=== PATIENT | male | born 1985 | race Hispanic/Latino ===

== ENCOUNTER 2018-11-07 08:05 | Outpatient (CLI) | payer OTHER ==
--- NOTE | 2018-11-07 11:17 | MRI ---
MRI OF LEFT ELBOW PERFORMED WITHOUT CONTRAST ENHANCEMENT: History: Injured elbow at work with elbow pain. Patient was unable to hold still for the exam and the re is considerable motion artifact. FINDINGS: Ulnar collateral ligament and lateral collateral ligamentous complex appear intact. Common flexor and extensor tendons are normal. No marrow edema changes are seen of the radius ulna or distal humerus. The triceps tendon is normal in appearance. There is a complete tear of the biceps tendon. The tendon is retracted by approximately 9 cm with the distal tendon coiled at the musculotendinous junction. There are edema changes involving the musculo tendinous junction. The tendon is coiled but the edges do not show a significant degree of fraying. I t appears to be a fairly functional appearing tendon. This degree of retraction would be consistent w ith rupture of the lacertus fibrosis. Motion artifact degrades detailed evaluation. IMPRESSION: Complete biceps tendon tear. The tendon is retracted approximately 9 cm, coiled at the level of the m usculotendinous junction of the biceps. POS: [facility]
== END 2018-11-07 08:06 | disposition home or self-care (01) ==
LOC: SCSMRI 08:05
PROVIDERS: ATTEND Orthopaedic Surgery
DX: S46.212A Strain of muscle, fascia and tendon of other parts of biceps, left arm, initial encounter (principal)

== ENCOUNTER 2018-11-13 00:33 | Outpatient (CLI) | payer OTHER ==
[2018-11-13 16:08] LABS: Hemoglobin 15.3 g/dL (14.0-18.0); Mean Corpuscular HGB CONC 33.5 g/dL (32.0-36.0); Mean Corpuscular Hemoglobin 26.7 pg (27.0-31.0); Mean Corpuscular Volume 79.8 fL (78.0-98.0); Mean Platelet Volume 7.5 fL (7.4-10.4); Platelet Count 272 thou/uL (130-400); RBC Distribution Width 11.7 % (11.5-14.5); Red Blood Cell (RBC) Count 5.73 mill/uL (4.70-6.10); White Blood Cell (WBC) Count 7.9 thou/uL (4.8-10.8)
== END 2018-11-13 00:34 | disposition home or self-care (01) ==
LOC: LABBT 00:33
PROVIDERS: ATTEND Orthopaedic Surgery
DX: Z01.812 Encounter for preprocedural laboratory examination (principal); S46.212A Strain of muscle, fascia and tendon of other parts of biceps, left arm, initial encounter
CPT/HCPCS: 85027

== ENCOUNTER 2018-11-14 06:58 | Day surgery (SDC) | payer OTHER ==
[2018-11-13 15:03] VITALS: BMI 28.0
[2018-11-14] MEDS ORDERED: Midazolam HCl 2 mg/2 ml Vial ONE (08:07)
[2018-11-14] MEDS ORDERED: Fentanyl 100 MCG/2 ML VIAL ONE (08:07)
[2018-11-14] MEDS ORDERED: Ondansetron PF 4 MG/2 ML Vial IVP PRN (09:26)
[2018-11-14] MEDS ORDERED: HYDROcodone/Acetaminophen 5/325 mg Tablet PO PRN ×2 (09:26)
[2018-11-14] MEDS ORDERED: Promethazine HCl 25 MG/ML VIAL IM PRN (09:26)
[2018-11-14] MEDS ORDERED: Ropivacaine 0.2% 550 ML 550 ML NERVE BLCK SCH (09:26)
[2018-11-14] MEDS ORDERED: traMADol HCl 50 MG TAB PO PRN ×2 (09:26)
[2018-11-14] MEDS ORDERED: Zolpidem Tartrate 5 MG TAB PO PRN (09:26)
[2018-11-14] MEDS ORDERED: Fentanyl 100 MCG/2 ML VIAL IV PRN (09:27)
[2018-11-14] MEDS ORDERED: Dexamethasone 20 MG/5 ML VIAL ONE (10:00)
[2018-11-14] MEDS ORDERED: PROPOFOL 200 MG/20 ML VIAL ONE (10:00)
[2018-11-14] MEDS ORDERED: Rocuronium Bromide 10 MG/ML (10ML VIAL) ONE (10:00)
[2018-11-14] MEDS ORDERED: Ondansetron PF 4 MG/2 ML Vial ONE (10:00)
[2018-11-14] MEDS ORDERED: Glycopyrrolate 0.2 MG/ML 5 ML SYRINGE ONE (10:00)
[2018-11-14] MEDS ORDERED: Ketorolac Tromethamine 30 MG/ML VIAL ONE (10:00)
[2018-11-14] MEDS ORDERED: Lidocaine 1% PF 5 ML VIAL ONE (10:00)
[2018-11-14] MEDS ORDERED: Ropivacaine 0.2% HCl/PF (40 MG/20 ML VIAL) ONE (11:13)
[2018-11-14] MEDS ORDERED: Ropivacaine 0.5% HCl/PF (150 MG/30 ML VIAL) ONE (11:13)
--- NOTE | 2018-11-14 11:17 | RAD ---
TWO VIEWS LEFT ELBOW: HISTORY: Biceps tendon repair. FINDINGS: Single oblique view left elbow obtained. There has been placement of a radiopaque marker over the proximal radius. This is compatible with po stsurgical changes of biceps repair. A small amount of gas is seen in the left elbow joint. IMPRESSION: Status post left elbow reconstruction and biceps repair. POS: [facility]
--- NOTE | 2018-11-15 03:40 | OP ---
DATE OF PROCEDURE: 11/14/2018 PREOPERATIVE DIAGNOSIS: Left distal biceps rupture. POSTOPERATIVE DIAGNOSIS: Left distal biceps rupture. PROCEDURE PERFORMED: Left distal biceps tendon repair. CLOUD SYSTEMS ADMINISTRATOR: Bud Glaser PA-C. ANESTHESIA: The patient received general endotracheal intubation with interscalene. ESTIMATED BLOOD LOSS: 30 mL. TOURNIQUET TIME: 46 minutes at 250 mmHg. ANTIBIOTICS: Ancef 2 g. IMPLANTS: Arthrex distal biceps repair TightRope with suture. COMPLICATIONS: None. HISTORY OF PRESENT ILLNESS: Mr. 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 The patient had immediate pain and rupture of his distal biceps. I discussed with the patient, the risks and benefits of a left distal biceps repair to include pain, scar, bleeding, infection, damage to vital structures, decreased range of motion and strength, nonunion, malunion, need for further surgery. The patient understood the risks and benefits and elected to proceed. DESCRIPTION OF PROCEDURE: Time-out was performed designating the patient's left upper extremity as the operative site based on site, consents, and markings. After time-out, the patient's tourniquet was brought up for a total of 46 minutes, made an incision between the pronator and the brachioradialis, came down and found the patient's stump proximally, came to the biceps sheath and aponeurosis. To kind of expand the space to track down, we bluntly dissected down through the aponeurosis for its insertion, a little bit distally going under the leash, keeping the leash of Radu intact. The lateral brachial cutaneous nerve was retracted laterally and it was not seen in our surgical field. We came down onto the bicipital tuberosity, exposed, and removed right up to the stump for position of our drill bit; we looked under fluoroscopic guidance and surely liked the position. We drilled bicortically, and then drilled a 7.5 hole for tendon. A FiberLoop was passed through the patient's biceps moving proximally to distally. We cut the tendon to pass through the 7.5 hole. We then passed it through our TightRope, and passed it underneath the leash in line with its position. We then passed it in and pulled the tendon into the hole. We then passed the suture ends back underneath the leash and passed the sutures through the tendon and sewed through the tendon to keep it in place. The patient was tied at about 20 degrees of extension, had a nice repair. We had washed and removed all the bone debris before and after the procedure and washed again. We then closed subcu with 2-0 and 3-0 nylon. The patient will follow us in about 10 to 14 days to begin range of motion. Job ID: [id number] [facility]
== END 2018-11-14 14:00 | disposition home or self-care (01) ==
LOC: SDC 06:58
PROVIDERS: ATTEND Orthopaedic Surgery
PROC: 0LQ40ZZ Repair Left Upper Arm Tendon, Open Approach (ICD-10-PCS; principal; 2018-11-14)
DX: S46.212A Strain of muscle, fascia and tendon of other parts of biceps, left arm, initial encounter (principal); X50.0XXA Overexertion from strenuous movement or load, initial encounter
CPT/HCPCS: 76000; A4306; C1713; J1100; J1885; J2001; J2250; J2405; J2704; J2795; J3010

== ENCOUNTER 2021-04-19 05:28 | Emergency (ER) | payer SELFPAY ==
[2021-04-19 06:11] LABS: #Basophils 0.1 thou/uL (0.0-0.2); #Eosinphils 0.1 thou/uL (0.0-0.7); #Lymphocytes 3.3 thou/uL (1.20-3.40); #Monocytes 0.8 thou/uL (0.11-0.59); #Neutrophils 7.6 thou/uL (1.40-6.50); %Basophils 0.8 % (0.0-1.0); %Eosinophils 0.9 % (0.0-10.0); %Lymphocytes 27.9 % (21.0-51.0); %Monocytes 6.5 % (0.0-10.0); Hemoglobin 13.3 g/dL (14.0-18.0); Mean Corpuscular HGB CONC 33.4 g/dL (32.0-36.0); Mean Corpuscular Hemoglobin 24.7 pg (27.0-31.0); Mean Corpuscular Volume 73.7 fL (78.0-98.0); Mean Platelet Volume 8.2 fL (7.4-10.4); Platelet Count 249 thou/uL (130-400); White Blood Cell (WBC) Count 11.8 thou/uL (4.8-10.8)
[2021-04-19 06:12] LABS: Bilirubin Negative (Negative); Blood, Urine Negative (Negative); Clarity Clear (Clear); Glucose, Urine (Dipstick) Normal (Negative); Ketone, Urine Negative (Negative); Leukocyte Negative Leu/uL (Negative); Nitrite Negative (Negative); Protein, Urine (Dipstick) Negative (Neg-Trace); Specific Gravity, Urine 1.023 (1.002-1.036); Urobilinogen Normal mg/dL (Less than 2); pH, Urine 6.5 (5.0-9.0)
[2021-04-19 06:32] LABS: ALT (SGPT) 85 U/L (8-55); AST (SGOT) 44 U/L (5-34); Albumin 4.3 g/dL (3.5-5.0); Alkaline Phosphatase 90 U/L (40-110); Anion Gap 13 mmol/L (10-20); BUN (Urea Nitrogen) 10 mg/dL (8.9-20.6); Bilirubin, Total 0.6 mg/dL (0.2-1.2); Calc. Creatinine Clearance 0 mL/min (70-130); Calcium 9.1 mg/dL (7.8-10.44); Carbon Dioxide 24 mmol/L (22-29); Chloride 106 mmol/L (98-107); Globulin 2.8 g/dL (2.4-3.5); Glucose 108 mg/dL (70-105); Lipase 25 U/L (8-78); Potassium 3.9 mmol/L (3.5-5.1); Protein, Total 7.1 g/dL (6.0-8.3); Sodium 139 mmol/L (136-145)
[2021-04-19] MEDS ORDERED: Ketorolac Tromethamine 30 MG/ML VIAL ONE (07:59)
== END 2021-04-19 09:50 | disposition home or self-care (01) ==
LOC: ERS 05:28
DX: K63.89 Other specified diseases of intestine (principal)
CPT/HCPCS: 36415; 74177; 80053; 81003; 83690; 85025; 96374; J1885